=== PATIENT | female | born 1980 | race Two or more races ===

== ENCOUNTER 2019-08-02 08:42 | Day surgery (SDC) | payer OTHER ==
[2019-08-02] VITALS (8 sets, daily range): BP systolic 132–154; BP diastolic 85–97
[~2019-08-02] VITALS: Ht 152.4 cm; Wt 98.9 kg
--- NOTE | 2019-08-02 06:45 | Anethesia Preoperative Eval ---
Anesthesia Pre-op PMH/ROS General Date of Evaluation: Aug 02, 2019 Time of Evaluation: 06:45 Anesthesiologist: ernst ASA Score: ASA 2 Mallampati Score Class I : Soft palate, uvula, fauces, pillars visible Class II: Soft palate, uvula, fauces visible Class III: Soft palate, base of uvula visible Class IV: Only hard plate visible Mallampati Classification: Class II Surgeon: rashad Diagnosis: gerd Surgical Procedure: egd Anesthesia History: none Social History: smoking - nonsmoker Family History: no anesthesia problems Medications: see eMAR Patient NPO?: Yes Past Medical History Gastrointestinal/Genitourinary: Reports: GERD PSxH Narrative: btl Anesthesia Pre-op Phys. Exam Physician Exam Last Vital Signs Date Time Temp Pulse Resp B/P (MAP) Pulse Ox O2 Delivery O2 Flow Rate FiO2 08/02/19 09:23 98.1 69 18 154/93 99 Room Air Constitutional: NAD Neurologic: CN 2-12 intact Cardiovascular: RRR Respiratory: CTA Gastrointestinal: S/NT/ND Airway Exam Mallampati Score: Class II MO: full Neck: short TMD: 2fb Anesthesia Pre-op A/P Labs Serum Test Labs Test 08/02/19 09:15 Urine HCG, Qualitative Negative (NEGATIVE) Risk Assessment & Plan Assessment: asa2 Plan: mac Status Change Before Surgery: No Pre-Antibiotics Drug: Domitila Seaman MD Aug 02, 2019 06:45
--- NOTE | 2019-08-02 08:56 | Short Stay Surgery H&P ---
History of Present Illness History of Present Illness Chief Complaint Abdominal pains/GERDs HPI Brittany Winkler is a 39 year old female who was admitted on for GERD/Epigastric pains Patient History PAST MEDICAL HISTORY: (1) History of knee surgery Review of Systems Cardiovascular: Reports: no symptoms Respiratory: Reports: no symptoms Skeletal: Reports: trauma Gastrointestinal: Reports: gastro esophageal reflux disease Genitourinary: Reports: no symptoms Neurologic: Reports: no symptoms Endocrine: Reports: no symptoms Hematologic: Reports: no symptoms Physical Exam Skin: normal HENT: normal Heart: normal Lungs: normal Abdomen: abnormal Extremities: normal Genitourinary: normal Plan Plan of Care Perfomance of the upper GI. endoscopy and obtaining biopsy. Preop Interventions None. Summary of Findings See the reports Attestation Are the patient's medical conditions optimized for surgery? Attestation Response: yes May Thayer MD Aug 02, 2019 08:56
--- NOTE | 2019-08-02 08:57 | Pre-Procedure Note/Attestation ---
Pre-Procedure Note/Attestation Complete Prior to Procedure Planned Procedure: left Procedure Narrative: Examination of he Upper GI. tract via endoscopy with obtaining biopsies. Indications for Procedure Pre-Operative Diagnosis: R/O Peptic ulcer/Gastritis/Esophagitis. Attestation I attest that I discussed the nature of the procedure; its benefits; risks and complications; and alternatives (and the risks and benefits of such alternatives ), prior to the procedure, with the patient (or the patient's legal termite control service representative). I attest that, if there was a reasonable possibility of needing a blood transfusion, the patient (or the patient's legal termite control service representative) was given the [facility] standardized written summary, pursuant to the Stephen Demario Blood Safety Act ([place] Health and Safety Code # 1645, as amended). I attest that I re-evaluated the patient just prior to the surgery and that there has been no change in the patient's H&P, except as documented below: May Thayer MD Aug 02, 2019 08:57
[2019-08-02] MEDS ORDERED: LR 1000ml ONE (09:00)
[2019-08-02] MEDS ORDERED: Lidocaine 1% MPF 10mg/ml 5ml ONE (09:00)
[2019-08-02] MEDS ORDERED: Propofol 200mg/20ml IV ONE (09:00)
[2019-08-02] MEDS ORDERED: LR 1000ml 1,000 ML IVLG SCH (09:29)
[2019-08-02] MEDS ORDERED: Atropine Inj 1mg/10ml Syr IV PRN (09:30)
[2019-08-02] MEDS ORDERED: Midazolam 2mg/2ml Inj IVP PRN (09:30)
[2019-08-02] MEDS ORDERED: fentaNYL 100 mcg/2 mL IV PRN (09:30)
[2019-08-02] MEDS ORDERED: DiphenhydrAMINE 50mg/ml Inj IVP PRN (09:30)
[2019-08-02] MEDS ORDERED: NAPROXEN250 MG ORAL (09:31)
--- NOTE | 2019-08-02 09:47 | Endoscopy Procedure Note ---
Endoscopy Procedure Note General Indication for Procedure: Abdominal pains/ GERDS and history of laryngitis Procedures Performed: EGD - Small Hiatal hernia and mild antritis that was biopsied;otherwise normal upper GI. endoscopy. Specimen: yes Pt Tolerated Procedure Well: Yes Estimated Blood Loss: none Anesthesia Anesthesiologist: Dr. Doan Anesthesia: moderate sedation Medications Medication Given: see anesthesia record Inserted Devices Implant(s) used?: No Quality Quality of Bowel Preparation: Excellent Was there any complications?: No GI Core Measures 50 yrs or older w/o bx or poly: Not Applicable 10yrs. F/U recommended: Not Applicable If not recommended, why?: Med reason:<3 yrs.: System Reason:<3 yrs.: May Thayer MD Aug 02, 2019 09:47
--- NOTE | 2019-08-02 09:49 | Discharge Instructions ---
Discharge Instructions Discharge Instructions Follow up with: No need to follow up with Dr. Thayer. Report will be sent to Dr. Espitia. For Congestive Heart Failure Reminder Report to your physician any weight gain of 5 pounds or more in one week. May Thayer MD Aug 02, 2019 09:49
--- NOTE | 2019-08-02 10:05 | Immediate Post-Op Evaluation ---
Immediate Post-Op Evalulation Immediate Post-Op Evalulation Procedure: egd w/bx Date of Evaluation: Aug 02, 2019 Time of Evaluation: 10:05 IV Fluids: 125ml lr Blood Products: none Estimated Blood Loss: negligible Blood Pressure Systolic: 149 Blood Pressure Diastolic: 97 Pulse Rate: 70 Respiratory Rate: 18 O2 Sat by Pulse Oximetry: 100 Temperature (Fahrenheit): 97.1 Pain Score (1-10): 0 Nausea: No Vomiting: No Complications none Patient Status: awake, reacts, patent Hydration Status: adequate Drug: Domitila Seaman MD Aug 02, 2019 10:05
--- NOTE | 2019-08-02 10:06 | 48 Hour Post Anesthesia Eval ---
Post Anesthesia Evaluation Procedure: egd w/bx Date of Evaluation: Aug 02, 2019 Time of Evaluation: 10:07 Blood Pressure Systolic: 150 0: 96 Pulse Rate: 60 Respiratory Rate: 18 Temperature (Fahrenheit): 97.1 O2 Sat by Pulse Oximetry: 100 Airway: patent Nausea: No Vomiting: No Pain Intensity: 0 Hydration Status: adequate Cardiopulmonary Status: stable Mental Status/LOC: patient returned to baseline Post-Anesthesia Complications: none Follow-up care needed: N/A Domitila Doan MD Aug 02, 2019 10:06
--- NOTE | 2019-08-02 15:30 | Operative Note - Dictated ---
DATE OF OPERATION: 08/02/2019 SURGEON: May Thayer M.D. PROCEDURE: Esophagogastroduodenoscopy with biopsy. PREOPERATIVE DIAGNOSES: 1. Abdominal pain, history of gastroesophageal reflux, rule out gastritis, peptic ulcer disease. 2. History of laryngitis, possibly acid reflux. POSTOPERATIVE DIAGNOSES: 1. Evidence of a small hiatal hernia. 2. Mild gastritis of the antrum, which was biopsied. MEDICATION USED: Per Dr. Anaya, anesthesiologist. INSTRUMENT: GIF Olympus upper GI video endoscope. DESCRIPTION OF PROCEDURE: The patient after arriving in the endoscopy unit, was told about risks and benefits of the procedure, which she accepted and signed informed consent. She was then put on the left lateral decubitus position. After adequate IV sedation, the scope was gently passed through the cricopharyngeal area, was lodged into the upper esophagus and gradually advanced towards gastroesophageal junction. The entire length of the esophagus looked normal and there was no any evidence of inflammatory process or ulceration, etc. No stricture. Reaching to the gastroesophageal junction revealed evidence of a small hiatal hernia, but no Mcclain's mucosa or ulceration, crack, etc. was noted. Subsequently, the scope was advanced into the stomach. Gastric cavity was distended and gradually the areas of the fundus and the body and the antrum of the stomach was examined. The upper two parts of the stomach looked completely normal without evidence of any major inflammatory process or gastritis, ulcers, tumors, or polyps, etc. However, upon reaching to the antrum, there was evidence of mild inflammatory process consistent with mild gastritis of no great significance, however, it was biopsied. Subsequently scope was passed through the pylorus. First and second portion of duodenum were found to be also completely normal. At this time, the scope was pulled back into the stomach. A retroflexion maneuver was applied. The area of the gastroesophageal junction was examined in a closer fashion, which looked normal. At this time, the scope was pulled out and procedure was terminated. The patient tolerated the procedure well and left the endoscopy room in a good condition. May Thayer M.D. DR: WENDY JOB#: [id number] CC:
--- NOTE | 2019-08-02 15:45 | Pre-op HX & Phy Repo 2 SIG ---
DATE OF ADMISSION: 08/02/2019 HISTORY OF PRESENT ILLNESS: The patient is a 39-year-old non Citizen Of [place]-speaking female who is being seen prior to undergoing the procedure for upper GI endoscopy for which she has been scheduled to receive for evaluation of gastrointestinal symptoms and particularly recently has had history of reflux condition raising the question of possible laryngitis as was referred by the ENT physician for performance of upper GI endoscopy, which was authorized. I examined the patient in the office approximately two months ago when she was complaining of pressure and pain over the epigastric area with symptoms of gastroesophageal acid reflux. 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 At this time, she had history of fall and got injury over her right knee. Subsequently, she was started on multiple medications including nonsteroidal anti-inflammatory agents and analgesics that she started to experience symptoms of pain over the epigastric area along with changes in her voice in the morning causing problem. There was also filling pressure over the throat area as well. The patient has been receiving nonsteroidal anti-inflammatory agents such as ibuprofen and similar compounds after her injury. There was no nausea, vomiting, hematemesis, melena, or hematochezia. There was no any history of constipation, rectal bleeding, diarrhea, etc. She was taking Mylanta for the problem of heartburn, but however she had not been taking any medications such as PPIs or H2 blockers. At this time, she denies having any diarrhea or constipation and there has been no history of diagnosis for gastritis of Helicobacter origin in the past, neither she has received any upper GI endoscopic examination. As I mentioned, the patient underwent a laryngoscopic examination by Dr. Espitia, ENT specialist recently, which revealed normal vocal cord and symptoms suggestive of reflux laryngitis. PAST MEDICAL HISTORY: Nonsignificant. She denies having high blood pressure, hyperlipidemia, colitis, pancreatitis, hepatitis, pneumonia, etc. There is no history of asthma or bronchitis. She denies history of arthritis. SURGICAL HISTORY: The patient has surgery history of the right knee secondary to work accident. ALLERGIES: Nonsignificant. CHILD DISEASES: As usual. HABITS: The applicant does not drink alcohol or smoke cigarettes etc. LIST OF PRESENT MEDICATION: Naproxen only. REVIEW OF SYSTEMS: Basically history of present illness, otherwise nonsignificant as the patient has been complaining of discomfort over the abdominal area and the pain over the right knee area subsequent to her injury. PHYSICAL EXAMINATION: GENERAL: At this time reveals alert, oriented, very friendly female, does not seem to be in any acute distress. VITAL SIGNS: Temperature 98.1, pulse rate 69 per minute, respiratory rate 18 per minute, blood pressure 154/93, oxygen saturation 99% on room air. HEENT: Normocephalic. Pupils equal in size and reactive to light and accommodation. No visible jaundice. Buccal cavity, tongue midline, well hydrated. No ulcers. NECK: Supple. No JVD, thyromegaly, or adenopathy. CHEST: Clear to auscultation and percussion. No rales or rhonchi. HEART: S1, S2 normal. Regular rhythm. No gallops or murmur. ABDOMEN: Soft, but obese. There are areas of tenderness of mild degree over the epigastric area. There is no hepatosplenomegaly. No palpable mass noted. Bowel sounds are present. MUSCULOSKELETAL: Nonsignificant except some tenderness over the right knee. SKIN AND LYMPHATICS: Nonsignificant. NEUROLOGIC: Nonsignificant. INITIAL PREOPERATIVE IMPRESSION: 1. Abdominal pain with history of voice changes, possibly consistent with gastroesophageal acid reflux aggravated by NSAID medications, rule out underlying gastritis, peptic ulcer disease, duodenitis, etc. 2. History of bodily injury work related. RECOMMENDATIONS: The applicant seems at this time to be quite applicable to undergo the procedure of upper GI endoscopy, which requires mild anesthesia. She understands the risks and benefits and will sign the consent form in that regard. Said Fatou Thayer DR: CRISTIAN JOB#: [id number] CC:
== END 2019-08-02 11:05 | disposition home or self-care (01) ==
LOC: EDBD 08:42 → GAS 08:42
DX: R10.9 Unspecified abdominal pain (principal); K44.9 Diaphragmatic hernia without obstruction or gangrene; K21.9 Gastro-esophageal reflux disease without esophagitis; E66.9 Obesity, unspecified; K29.50 Unspecified chronic gastritis without bleeding
CPT/HCPCS: 43239; 81025; J2704; J7120; 94003; 94150